=== PATIENT | male | born 1945 | race Caucasian/White ===

== ENCOUNTER 2017-07-10 08:02 | Emergency (ER) | payer MEDICARE, OTHER ==
[~2017-07-10] VITALS: Ht 172.7 cm; Wt 99.8 kg
[~2017-07-10 08:02] MED LIST: ACETAMINOPHEN325 M1 PO; ALPRAZOLAM ER1 MG PO; ALPRAZOLAM0.5 MG PO; ATIVAN1 MG PO; CIPRO500 MG PO; CIPROFLOXACIN500 MG PO; LEVAQUIN500 MG PO; NORCO 5-325 TA1 EACH PO; PRILOSEC20 MG PO; ZOFRAN ODT8 MG SL
[2017-07-10] MEDS ORDERED: LISINOPRIL20 MG PO (10:20)
--- NOTE | 2017-07-10 20:52 | EKG ---
[facility] [address] [facility] [place] [address] Signed Sinus bradycardia Otherwise normal ECG No previous ECGs available Confirmed by SHANKAR HOANG MD ([id number]) on 07/10/2017 8:52:09 PM Electronically Signed By: SHANKAR HOANG MD 07/10/172051 PATIENT NAME: RAÚLLARISAJaida VAUGHAN Electrocardiogram DATE OF : 43 PHYSICIAN: SHANKAR HOANG MD REPORT #: [id number] REPORT IS CONFIDENTIAL AND NOT TO BE RELEASED WITHOUT AUTHORIZATION
== END 2017-07-10 10:36 | disposition home or self-care (01) ==
LOC: ED 08:02
DX: I10 Essential (primary) hypertension (principal); R07.2 Precordial pain; E78.5 Hyperlipidemia, unspecified; Z87.891 Personal history of nicotine dependence; Z88.0 Allergy status to penicillin; Z88.2 Allergy status to sulfonamides; Z88.8 Allergy status to other drugs, medicaments and biological substances; Z88.5 Allergy status to narcotic agent
CPT/HCPCS: 36415; 71045; 80053; 84484; 85025; 93005; 93010; 99284

== ENCOUNTER 2017-11-20 06:45 | Day surgery (SDC) | payer MEDICARE, OTHER ==
[~2017-11-20] VITALS: Ht 172.7 cm; Wt 97.5 kg
--- NOTE | ~2017-11-20 | OR ---
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 PROCEDURE: Olecranon bursectomy and removal of loose body x1. ANESTHESIA: General. SPECIMENS AND COMPLICATIONS: There were no specimens or complications. TOURNIQUET TIME: Tourniquet time was about 30 minutes. WHAT WAS DONE: The patient was taken to the operating room. After anesthesia was induced and airway secured, the patient was placed in the right lateral decubitus position. The left upper extremity was positioned, prepped and draped in the routine sterile fashion. The arm was exsanguinated with an Esmarch bandage. Pneumatic tourniquet was inflated to 250 mmHg pressure. A vertical posterior incision was made directly over the olecranon bursa. Skin was divided sharply. Subcutaneous tissue was bluntly spread. The bursa was then shelled out as a single fragment and delivered off the field. There was an additional loose body lying just posterior to the triceps tendon and was slightly adherent to it. We therefore shell this out as well. Hemostasis was achieved with electrocautery. Routine wound closure was accomplished. A sterile dressing was applied and the patient was awakened and taken to the recovery room where he arrived in stable condition. Counts were correct and antibiotic protocols were followed. Timothy Craven MD PATIENT NAME: LARISA OLSEN OPERATIVE REPORT DATE OF : 43 REPORT #: [id number] PHYSICIAN: TIMOTHY CRAVEN MD PCP: KUMAR ACOSTA MD REPORT IS CONFIDENTIAL AND NOT TO BE RELEASED WITHOUT AUTHORIZATION [address] [place], [place] [address] Draft [facility] /[id number] Copies: ~ PATIENT NAME: LARISA OLSEN OPERATIVE REPORT DATE OF : 43 REPORT #: [id number] PHYSICIAN: TIMOTHY CRAVEN MD PCP: KUMAR ACOSTA MD REPORT IS CONFIDENTIAL AND NOT TO BE RELEASED WITHOUT AUTHORIZATION
[~2017-11-20 06:45] MED LIST changes: +ASPIR-LOW81 MG PO; +BIOTIN10000 MC1 PO; +CITRUS CALCIUM +1 EA PO; +FINASTERIDE5 MG PO; +LISINOPRIL20 MG PO; +OMEPRAZOLE20 MG PO; +VITAMIN B-6100 MG PO; +VITAMIN D32000 UNI1 PO
--- NOTE | 2017-11-20 10:01 | NUR ---
PT RESTING IN , WITH FAMILY PRESENT. HE IS POLITE, RESPECTFUL, BOT BOTH HE AND HIS SEEMED TO BE IN A SAENZ. EXTENDED A BLESSING WILL FOLLOW NEEDED
--- NOTE | 2017-11-20 10:15 | NUR ---
11/20/17 1015 Leticia Sams 1009 PATIENT ARRIVES TO PACU SLEEPING, AWAKENS WITH VERBAL STIMULI, DENIES PAIN, THEN BACK TO SLEEP. RESP EVEN AND UNLABORED, SNORES AT TIMES, MASK AT 6 LITERS.
[2017-11-20] MEDS ORDERED: ULTRAM50 MG PO (11:05)
--- NOTE | 2017-11-20 12:01 | NUR ---
1135 UP TO BR VOIDS QS. DENIES PAIN OR NEED FOR PAIN MEDICINE. WANTS TO GO HOME. ATE JELLO CRACKERS AND WATER. DENIES ANY NEEDS.
== END 2017-11-20 11:45 | disposition home or self-care (01) ==
LOC: DS 06:45 → OPS 06:45 → DS 08:15 → OPS 08:15
PROVIDERS: Orthopaedic Surgery
PROC: 0MB40ZZ Excision of Left Elbow Bursa and Ligament, Open Approach (ICD-10-PCS; principal; 2017-11-20 08:15)
DX: M70.22 Olecranon bursitis, left elbow (principal); I10 Essential (primary) hypertension; F32.9 Major depressive disorder, single episode, unspecified; G89.29 Other chronic pain; M54.9 Dorsalgia, unspecified; Z88.0 Allergy status to penicillin; Z88.5 Allergy status to narcotic agent; Z79.899 Other long term (current) drug therapy; Z79.82 Long term (current) use of aspirin
CPT/HCPCS: 01710; J0690; J2250; J2405; J2704; J2765; J3010; J7120

== ENCOUNTER 2019-02-12 10:17 | Day surgery (SDC) | payer MEDICARE, OTHER ==
[~2019-02-12] VITALS: Ht 172.7 cm; Wt 97.5 kg
[~2019-02-12 10:17] MED LIST changes: +ULTRAM50 MG PO
--- NOTE | 2019-02-12 12:57 | NUR ---
02/12/19 Paula Brannon 1252- PT ARRIVES TO PACU EASILY AROUSABLE TO VOICE. FALLS INSTANTLY TO SLEEP WHEN NOT BEING TALKED TO. RESP EVEN AND UNLABORED. OXYGEN SAT HIGH 90'S TO 100% ON 4L VIA MASK. 1254- OXYGEN TITRATED OFF.
--- NOTE | 2019-02-13 12:35 | OR ---
[facility] [address] [place], [place] [address] Signed DATE OF OPERATION: 02/12/2019 SURGEON: Shanice Fitzgerald MD PREOPERATIVE DIAGNOSES: 1. Family history of colon cancer (father). 2. Known diverticulosis. POSTOPERATIVE DIAGNOSIS: Diverticular disease. No sign of polyps. PROCEDURE PERFORMED: Total colonoscopy to cecum. ANESTHESIA: Intravenous sedation with fentanyl 100 mcg, Versed 4 mg. INDICATION: This 73-year-old white man is well known to me from the past having undergone excision of submandibular gland for submandibular abscess. He has also undergone colonoscopy in the past in 2014 showing diverticulosis. He is here for surveillance colonoscopy. He has family history of colon cancer in his father, who developed the disease in his 80s. He notes episodic abdominal pain in the left lower abdomen, which is largely related to his diet. He is admitted at this time to undergo colonoscopy. He understands the risks of bleeding, infection, and perforation. FINDINGS: He did have diverticulosis of the sigmoid and left colon. There was no sign of polyps or cancer. The remaining colon was normal. DESCRIPTION OF PROCEDURE: The patient was brought to the endoscopy suite and placed in lateral decubitus position given intravenous sedation to the point of slurred speech and nystagmus. Digital rectal examination was normal. An Olympus video colonoscope was passed in the rectum and manipulated throughout the colon noting diverticula of the sigmoid and left colon. The scope was ultimately advanced to the cecum. The ileocecal valve and appendiceal orifice were normal. The scope was withdrawn from that point. Examination throughout showed no sign of abnormality specifically no polyps or colitis but only diverticula as previously noted. Electronically Signed By: SHANICE FITZGERALD MD 02/13/19 1235 PATIENT NAME: LARISA OLSEN OPERATIVE REPORT DATE OF : 43 REPORT #: [id number] PHYSICIAN: SHANICE FITZGERALD MD PCP: KUMAR ACOSTA MD REPORT IS CONFIDENTIAL AND NOT TO BE RELEASED WITHOUT AUTHORIZATION [facility] [address] [place] [address] Signed Retroflexed view of the rectum was normal. Scope was removed. The patient was taken to recovery room in good condition. CONCLUSION DIAGNOSIS: Diverticular disease. No evidence of polyps or cancer. PLAN: Recommend repeat colonoscopy in 5 years based on family history of colon cancer in his father. MD PROSPER Mari/JOSHUA /[id number] cc: Abelino Dumont Copies: ~ Electronically Signed By: SHANICE FITZGERALD MD 02/13/19 1235 PATIENT NAME: JULIET OLSENJaida VAUGHAN OPERATIVE REPORT DATE OF : 43 REPORT #: [id number] PHYSICIAN: SHANICE FITZGERALD MD PCP: KUMAR ACOSTA MD REPORT IS CONFIDENTIAL AND NOT TO BE RELEASED WITHOUT AUTHORIZATION
== END 2019-02-12 13:35 | disposition home or self-care (01) ==
LOC: OPS 10:17 → DS 10:17 → OPS 10:45 → DS 10:45 → OPS 13:35
PROVIDERS: Surgery
PROC: 0DJD8ZZ Inspection of Lower Intestinal Tract, Via Natural or Artificial Opening Endoscopic (ICD-10-PCS; principal; 2019-02-12 10:45)
DX: R10.32 Left lower quadrant pain (principal); K57.30 Diverticulosis of large intestine without perforation or abscess without bleeding; Z88.0 Allergy status to penicillin; Z88.5 Allergy status to narcotic agent; Z88.2 Allergy status to sulfonamides; Z88.1 Allergy status to other antibiotic agents; Z80.0 Family history of malignant neoplasm of digestive organs
CPT/HCPCS: G0105; 99153; G0500; J2250; J3010; J7121

== ENCOUNTER 2019-12-31 13:31 | Emergency (ER) | payer MEDICARE, OTHER ==
[~2019-12-31] VITALS: Ht 172.7 cm; Wt 98.9 kg
--- OUTSIDE RECORDS SUMMARY | 2019-12-31 13:34 | XMS ---
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 Anisha has no Care Guidelines for this patient. Nica VISIT COUNT (12 MO.) 1 [facility] Lynn TOTAL 1 NOTE: Visits indicate total known visits. ED/C VISIT TRACKING (12 MO.) 12/31/2019 13:32 [facility] T[facility] [place] TYPE: Emergency COMPLAINT: - B/P PROBLEM, HEADACHE, VISION INPATIENT VISIT TRACKING (12 MO.) No inpatient visits to display in this time frame [id number]
[2019-12-31] MEDS ORDERED: CEPHALEXIN500 MG PO (13:49)
[2019-12-31] MEDS ORDERED: AMLODIPINE BES2.5 MG PO (13:49)
== END 2019-12-31 16:36 | disposition home or self-care (01) ==
LOC: ED 13:31
DX: R51.9 Headache, unspecified (principal); I10 Essential (primary) hypertension; E78.5 Hyperlipidemia, unspecified; Z87.891 Personal history of nicotine dependence; Z88.0 Allergy status to penicillin; Z88.2 Allergy status to sulfonamides; Z88.1 Allergy status to other antibiotic agents; Z88.5 Allergy status to narcotic agent; Z79.899 Other long term (current) drug therapy; Z79.82 Long term (current) use of aspirin
CPT/HCPCS: 70450; 80053; 85025; 85651; 99284-25

== ENCOUNTER 2020-01-13 12:04 | Emergency (ER) | payer MEDICARE, OTHER ==
[~2020-01-13] VITALS: Ht 172.7 cm; Wt 98.9 kg
[~2020-01-13 12:04] MED LIST changes: +AMLODIPINE BES2.5 MG PO; +CEPHALEXIN500 MG PO
--- OUTSIDE RECORDS SUMMARY | 2020-01-13 12:06 | XMS ---
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 Anisha has no Care Guidelines for this patient. Nica V[facility] COUNT (12 MO.) [facility] NOTE: Visits indicate total known visits. ED/[facility] VISIT TRACKING (12 MO.) [facility] COMPLAINT: - HIGH BLOOD PRESSURE 12/31/2019 13:[address] 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
[2020-01-13] MEDS ORDERED: HYDROCHLOROTH12.5 M1 PO (13:22)
== END 2020-01-13 13:32 | disposition home or self-care (01) ==
LOC: ED 12:04
DX: I10 Essential (primary) hypertension (principal); E78.5 Hyperlipidemia, unspecified; Z87.891 Personal history of nicotine dependence; Z88.0 Allergy status to penicillin; Z88.2 Allergy status to sulfonamides; Z88.5 Allergy status to narcotic agent; Z88.1 Allergy status to other antibiotic agents; Z79.899 Other long term (current) drug therapy; Z79.82 Long term (current) use of aspirin
CPT/HCPCS: 99283

== ENCOUNTER 2020-06-13 13:25 | Emergency (ER) | payer MEDICARE, OTHER ==
[~2020-06-13] VITALS: Ht 172.7 cm; Wt 98.9 kg
[~2020-06-13 13:25] MED LIST changes: +HYDROCHLOROTH12.5 M1 PO
== END 2020-06-13 16:18 | disposition home or self-care (01) ==
LOC: ED 13:25
DX: S61.216A Laceration without foreign body of right little finger without damage to nail, initial encounter (principal); W26.8XXA Contact with other sharp object(s), not elsewhere classified, initial encounter; E78.5 Hyperlipidemia, unspecified; I10 Essential (primary) hypertension; Z87.891 Personal history of nicotine dependence; Z88.0 Allergy status to penicillin; Z88.2 Allergy status to sulfonamides; Z88.1 Allergy status to other antibiotic agents; Z88.5 Allergy status to narcotic agent; Z79.899 Other long term (current) drug therapy; Z79.82 Long term (current) use of aspirin
CPT/HCPCS: 12001; 99282-25

== ENCOUNTER 2022-11-15 16:18 | Emergency (ER) | payer MEDICARE, OTHER ==
[~2022-11-15] VITALS: Ht 172.7 cm; Wt 77.5 kg
[2022-11-15] MEDS ORDERED: ATORVASTATIN CA40 MG PO (17:06)
[2022-11-15] MEDS ORDERED: LISINOPRIL5 MG PO (17:07)
[2022-11-15 19:07] VITALS: BP 139/71
== END 2022-11-15 19:05 | disposition home or self-care (01) ==
LOC: ED 16:18
DX: S81.811A Laceration without foreign body, right lower leg, initial encounter (principal); I10 Essential (primary) hypertension; W22.8XXA Striking against or struck by other objects, initial encounter; Z87.891 Personal history of nicotine dependence; Z88.0 Allergy status to penicillin; Z88.5 Allergy status to narcotic agent; Z88.8 Allergy status to other drugs, medicaments and biological substances; Z79.899 Other long term (current) drug therapy; Z79.82 Long term (current) use of aspirin
CPT/HCPCS: 99282

== ENCOUNTER 2023-03-14 13:19 | Emergency (ER) | payer MEDICARE, OTHER ==
[~2023-03-14] VITALS: Ht 172.7 cm; Wt 77.7 kg
[~2023-03-14 13:19] MED LIST changes: +ATORVASTATIN CA40 MG PO; +DIFLUCAN200 MG PO; +LISINOPRIL5 MG PO
[2023-03-14 14:42] LABS: BASOPHILS 0.7 % (0-2); EOSINOPHILS 2.8 % (0-6); HEMATOCRIT 45.4 % (35.0-50.0); HEMOGLOBIN 14.8 g/dL (12.0-18.0); LYMPHOCYTES 26.9 % (24-44); MCH 30.9 (27-36); MCHC 32.7 g/dl (30-36); MCV 94.4 fl (81-99); MONOCYTES 8.5 % (0-12); NEUTROPHILS 61.1 % (39-80); PLATELET COUNT 270 K/uL (140-440); RBC 4.81 M/ul (4.3-5.7); RDW 13.8 (10.5-15.0)
[2023-03-14 14:45] LABS: BILIRUBIN, URINE NEGATIVE (negative); BLOOD/HGB, URINE NEGATIVE (Negative); KETONE, URINE NEGATIVE (Negative); LEUK ESTERASE, URINE NEGATIVE (negative); NITRITE, URINE NEGATIVE (negative); PH, URINE 7.5 (5-7)
[2023-03-14 15:15] LABS: ALBUMIN 3.1 g/dL (3.4-5.0); BILIRUBIN, TOTAL 0.2 ng/dL (0.2-1.0); CALCIUM 8.4 mg/dL (8.5-10.1); PROTEIN, TOTAL 6.2 g/dL (6.4-8.2)
--- NOTE | 2023-03-14 17:40 | EKG ---
[facility] [address] [facility] [place] [address] Signed Sinus rhythm with 1st degree AV block Left axis deviation Abnormal ECG When compared with ECG of 17-NOV-2017 11:20, MA interval has increased Confirmed by BRUNO CRAVEN MD ([id number]) on 03/14/2023 5:40:00 PM Electronically Signed By: BRUNO CRAVEN 03/14/23 1740 PATIENT NAME: LARISA OLSEN Electrocardiogram DATE OF : 43 PHYSICIAN: BRUNO CRAVEN REPORT #: [id number] REPORT IS CONFIDENTIAL AND NOT TO BE RELEASED WITHOUT AUTHORIZATION
[2023-03-14] MEDS ORDERED: LEVOFLOXACIN750 MG PO (19:06)
[2023-03-14 19:19] VITALS: BP 142/78
== END 2023-03-14 19:21 | disposition home or self-care (01) ==
LOC: ED 13:19
PROVIDERS: Emergency Medicine
DX: K57.92 Diverticulitis of intestine, part unspecified, without perforation or abscess without bleeding (principal); K57.30 Diverticulosis of large intestine without perforation or abscess without bleeding; I10 Essential (primary) hypertension; Z88.0 Allergy status to penicillin; Z88.5 Allergy status to narcotic agent; Z88.8 Allergy status to other drugs, medicaments and biological substances; E78.5 Hyperlipidemia, unspecified; Z79.899 Other long term (current) drug therapy
CPT/HCPCS: 36415; 74177; 80053; 81003; 83690; 84484; 85025; 93005; 93010; 99284-25; J7030; Q9967

== ENCOUNTER 2023-05-08 07:50 | Day surgery (SDC) | payer MEDICARE, OTHER ==
[2023-05-01 08:18] VITALS: BP 111/75
[~2023-05-08] VITALS: Ht 172.7 cm; Wt 76.4 kg
--- NOTE | ~2023-05-08 | OR ---
[facility] [address] [place], [place] [address] Draft DATE OF OPERATION: 05/08/2023 SURGEON: Shanice Fitzgerald MD PREOPERATIVE DIAGNOSIS: Symptomatic umbilical hernia. POSTOPERATIVE DIAGNOSIS: Symptomatic umbilical hernia, 4.1 cm fascial defect. PROCEDURES: 1. Repair of 4.1 cm umbilical hernia. 2. Implantation of Prolene mesh underlay technique. ANESTHESIA: General LMA, Zane Morris, PRE SCHOOL MANAGER and local 10 mL of 0.25% Marcaine with epinephrine. INDICATION: This 77-year-old white man is a patient of Tevin Dalton MD. He is known to me from the past having undergone neck exploration for purulent submandibular adenitis requiring resection. The patient is referred for colonoscopy and additionally noted to have an umbilical hernia at the umbilical site. Initial clinical evaluation shows it to possibly be less than 3 cm. The hernia is uncomfortable for him, though it is reducible. He has some diastasis cephalad to the umbilicus itself. He is admitted at this time to undergo umbilical hernia repair. He understands the risk of bleeding, infection, recurrence and so on. FINDINGS: The defect was somewhat larger than clinically suspected measured at 4.1 cm. The attenuated fascia was broadly covered with implantation of mesh in the properitoneal space. Closure of the fascia over the mesh was accomplished as well without problem. DESCRIPTION OF PROCEDURE: The patient was brought to the operating room, given a general LMA type anesthetic. Preoperative antibiotic Ancef was given. Sequential compression device stockings were used and heparin subcutaneously administered. The abdomen was clipped and prepared with a chlorhexidine solution and draped sterilely. Palpation at the umbilicus revealed the mass, which was not particularly entirely reducible, though certainly without signs of erythema or signs of strangulation. A curvilinear incision was made lateral to the umbilicus, in the umbilical skin fold dissection was carried through the subcutaneous PATIENT NAME: LARISA OLSEN OPERATIVE REPORT DATE OF : 43 REPORT #: [id number] PHYSICIAN: SHANICE FITZGERALD MD PCP: TEVIN DALTON MD REPORT IS CONFIDENTIAL AND NOT TO BE RELEASED WITHOUT AUTHORIZATION [facility] [address] [place], [place] [address] Draft tissue. The underlying hernia sac was freed from the overlying dermis of the umbilicus allowing for good definition of the fascial edges circumferentially. It was measured approximately 4.1 cm. The hernia that was protruding was properitoneal fat. A plane was developed between the properitoneal fat and the overlying fascia. Once circumferentially freed, a segment of Prolene mesh was cut to a circular configuration and secured in an underlay technique with interrupted 0 Prolene sutures. The fascia was then reapproximated with interrupted 0 Prolene suture in a vertical mattress configuration. 10 mL of 0.25% Marcaine with epinephrine was injected locally. The Keyanna's layer was reapproximated with interrupted 2-0 Vicryl and skin closed with running subcuticular 3-0 Vicryl. Steri-Strips were applied as was an Acticoat dressing. Blood loss was estimated at 5 mL. Sponge, needle and instrument counts were reported as correct x3. MD PROSPER Mari/MODL /[id number] cc: Tevin Dalton MD Copies: TEVIN DALTON MD ~ PATIENT NAME: LARISA OLSEN CLEMENT OPERATIVE REPORT DATE OF : 43 REPORT #: [id number] PHYSICIAN: SHANICE FITZGERALD MD PCP: TEVIN DALTON MD REPORT IS CONFIDENTIAL AND NOT TO BE RELEASED WITHOUT AUTHORIZATION
[~2023-05-08 07:50] MED LIST changes: +ACID REDUCER20 MG PO; +CALCIUM CITRAT480 GM PO; +CEFAZOLIN SODIUM 2 GM/20 ML SYR IV SCH; +HEParin SOD (PORCINE) 5,000 UNIT/0.5 ML SYR SUB-Q SCH; +IBLOOD GLUCOSE TEST STRIP 1 EA TEST VI PRN; +LACTATED RINGER'S 1,000 ML IV SCH; +LEVOFLOXACIN750 MG PO; +LIDOCAINE HCL 1% 5 ML SDV INJ ONE; +OSTERA TABLET1 EACH PO; +TYLENOL EXTRA500 MG PO; +[UNRECOGNIZED DRUG - OTHER] PO
[2023-05-08 08:32] VITALS: BP 123/69
[2023-05-08] MEDS ORDERED: fentaNYL citrate 100 MCG/2 ML VIAL ONE (08:42)
[2023-05-08] MEDS ORDERED: DEXAMETHASONE SOD PHOS 4 MG/ML VIAL ONE (08:55)
[2023-05-08] MEDS ORDERED: LIDOCAINE HCL 2% 5 ML SDV ONE ×2 (08:55→09:01)
[2023-05-08] MEDS ORDERED: ondansetron HCL 4 MG/2 ML VIAL ONE (08:55)
[2023-05-08] MEDS ORDERED: ACETAMINOPHEN 1,000 MG/100 ML VIAL ONE (08:55)
[2023-05-08] MEDS ORDERED: propofoL 200 MG/20 ML VIAL ONE (08:55)
[2023-05-08] MEDS ORDERED: MAGNESIUM SULFATE 1 GM/2 ML VIAL ONE (09:03)
--- NOTE | 2023-05-08 11:02 | NUR ---
05/08/23 1102 Dyana Grant 1053-PATIENT ARRIVED TO PACU ON RA 02 SAT MID 90S'S PLACED ON 6L MASK INCREASED TO 100% RN DOING JAW TILT TO MAINTAIN OPEN AIRWAY. SR. IVF INFUSING. UMBILICAL DRESSING CDI. 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 HOB ELEVATED. 1057-PATIENT HAVING PERIODS OF APNEA WITH SNORING AROUSES TO VERBAL STIMULI REMAINS VERY DROWSY DOZES BACK TO SLEEP.
[2023-05-08] MEDS ORDERED: IBUPROFEN600 MG PO (11:05)
[2023-05-08] MEDS ORDERED: ACETAMINOPHEN500 MG PO (11:06)
[2023-05-08] MEDS ORDERED: OXYCODON-ACETA1 EAC2 PO (11:06)
[2023-05-08] MEDS ORDERED: ACETAMINOPHEN 500 MG TAB PO PRN (11:15)
[2023-05-08] MEDS ORDERED: LACTATED RINGER'S 1,000 ML IV SCH (11:15)
[2023-05-08] MEDS ORDERED: IBUPROFEN 600 MG TAB PO PRN (11:15)
[2023-05-08] MEDS ORDERED: OXYCODONE/APAP 7.5/325 TAB PO PRN (11:15)
[2023-05-08 11:55] VITALS: BP 117/63
--- NOTE | 2023-05-08 11:58 | NUR ---
PATIENT BACK IN DAY SURGERY ROOM FROM PACU. RATES PAIN 4/10 AT SURGICAL SITE. UMBILICUS DRESSING WITH SMALL AMOUNT OF RED DRAINAGE NEAR BOTTOM OF DRESSING. VS CHECKED. IV SITE WNL. SCDs ON. CALL LIGHT WITHIN REACH. TOLERATING SIPS OF WATER. DECLINED SOMETHING TO EAT AT THIS TIME. FAMILY IN ROOM WITH PATIENT.
[2023-05-08 12:52] VITALS: BP 120/64
--- NOTE | 2023-05-08 14:32 | NUR ---
1230: PATIENT STATES DOING WELL. GIVEN PUDDING TO EAT. 1245: VS CHECKED. UMBILICUS DRESSING WITH SMALL AMOUNT OF DRAINAGE AT BOTTOM OF DRESSING. IV SITE WNL. CALL LIGHT WITHIN REACH.
--- NOTE | 2023-05-08 14:36 | NUR ---
1300: PATIENT MEDICATED FOR PAIN WITH 1 TABLET OF PERCOCET. PATIENT ASSISTED OOB AND TO BATHROOM. GAIT STEADY. VOID WITHOUT DIFFICULTY. GAIT STEADY BACK TO ROOM. PATIENT GETTING DRESSED. 1315: DISCHARGE INSTRUCTIONS GIVEN TO PATIENT AND GRANDSON. IV DC'D WNL. TIP INTACT. DRESSING APPLIED. 1318: PATIENT DISCHARGED TO HOME WITH GRANDSON VIA WHEELCHAIR.
--- NOTE | 2023-05-08 21:50 | EKG ---
[facility] [address] [facility] [place] [address] Signed Sinus rhythm with 1st degree AV block Left axis deviation Abnormal ECG When compared with ECG of 14-MAR-2023 14:15, No significant change was found Confirmed by Pasha Caraballo MD () on 05/08/2023 9:50:40 PM Electronically Signed By: PASHA CARABALLO MD 05/08/232149 PATIENT NAME: LARISA OLSEN Electrocardiogram DATE OF : 43 PHYSICIAN: PASHA CARABALLO MD REPORT #: [id number] REPORT IS CONFIDENTIAL AND NOT TO BE RELEASED WITHOUT AUTHORIZATION
== END 2023-05-08 13:18 | disposition home or self-care (01) ==
LOC: DS 07:50
PROVIDERS: ATTEND Surgery
PROC: 0WUF0JZ Supplement Abdominal Wall with Synthetic Substitute, Open Approach (ICD-10-PCS; principal; 2023-05-08 09:30)
DX: K42.9 Umbilical hernia without obstruction or gangrene (principal); I10 Essential (primary) hypertension; K21.9 Gastro-esophageal reflux disease without esophagitis; E78.00 Pure hypercholesterolemia, unspecified; Z80.0 Family history of malignant neoplasm of digestive organs
CPT/HCPCS: 93005; 93010; C1781; J0131; J0690; J1100; J1644; J2001; J2405; J2704; J3010; J3475; J7121

== ENCOUNTER 2023-09-09 11:58 | Day surgery (SDC) | payer MEDICARE, OTHER ==
[~2023-09-09] VITALS: Ht 172.7 cm; Wt 76.4 kg
[~2023-09-09 11:58] MED LIST changes: +ACETAMINOPHEN500 MG PO; +CALCIUM 500 MG1 EAC5 PO; -CALCIUM CITRAT480 GM PO; -CEFAZOLIN SODIUM 2 GM/20 ML SYR IV SCH; +CLINDAMYCIN HC300 MG PO; +DICYCLOMINE HCL20 MG PO; -HEParin SOD (PORCINE) 5,000 UNIT/0.5 ML SYR SUB-Q SCH; +IBUPROFEN600 MG PO; +IMODIUM A-D2 M2 PO; +MIDAZOLAM HCL 5 MG/5 ML VIAL IV PRN; -OSTERA TABLET1 EACH PO; +OXYCODON-ACETA1 EAC2 PO; +TM-VITE RX T1000 MCG PO; +VITAMIN D325 MCG PO; -[UNRECOGNIZED DRUG - OTHER] PO; +fentaNYL citrate 100 MCG/2 ML VIAL IV PRN
[2023-09-09 12:23] VITALS: BP 122/69
--- NOTE | 2023-09-09 14:01 | NUR ---
LE 1300-PT UPDATED ON WAIT TIME. NO OTHER NEEDS AT THIS TIME. CALL LIGHT WITHIN REACH. BAR IN ROOM.
--- NOTE | 2023-09-09 14:13 | NUR ---
PT UPDATED ON SURGERY WAIT TIME. PT STATES "THATS OK". PT AMBULATES TO RESTOOM. NO OTHER NEEDS AT THIS TIME. 1416-PT AMBULATES BACK TO ROOM. PT LAYING IN BED. NO OTHER NEEDS AT THIS TIME. CALL LIGHT WITHIN REACH.
--- NOTE | 2023-09-09 15:50 | NUR ---
PT UP TO RESTROOM. PT UPDATED ON WAIT TIME. STATES "I WOULD RATHER STAY AND GET IT OVER WITH". 1535-PT BACK IN ROOM AND IS LAYING IN BED. NO OTHER NEEDS AT THIS TIME. CALL LIGHT WITHIN REACH.
[2023-09-09] MEDS ORDERED: MIDAZOLAM HCL 5 MG/5 ML VIAL ONE (17:20)
[2023-09-09] MEDS ORDERED: fentaNYL citrate 100 MCG/2 ML VIAL ONE (17:21)
--- NOTE | 2023-09-09 18:15 | NUR ---
09/09/231814 Jovana Marley 180- PT ARRIVES TO UNIT ALERT & ORIENTED AND RESPONSIVE TO VERBAL STIMULI AT THIS TIME. PT ON 2L OF O2 VIA NC AT THIS TIME. RESPIRATIONS ARE EVEN AND UNLABORED AT THIS TIME. PT STATES HE IS COMFORTABLE AT THIS TIME. 1812- AMILCAR SUE AT BEDSIDE TO DISCUSS PROCEDURE W/PT. PT ASKING QUESTIONS APPROPRIATELY, ALL QUESTIONS ANSWERED AT THIS TIME. PT STATES HE IS COMFORTABLE AND REMAINS PAIN FREE. PT ENCOURAGED TO PASS ANY GAS IF SENSATION ARISES, PT STATES VERBAL UNDERSTANDING. PT AWAKE OFF AND ON, RESPIRATIONS EVEN AND UNLABORED. O2 >90% VIA 2L OF NC.
[2023-09-09 18:31] VITALS: BP 122/86
--- NOTE | 2023-09-12 15:28 | OR ---
[facility] [address] [place], [place] [address] Signed DATE OF OPERATION: 09/09/2023 SURGEON: Shanice Fitzgerald MD PREOPERATIVE DIAGNOSIS: Family history of colon cancer (father; normal colonoscopy in 2019). POSTOPERATIVE DIAGNOSES: 1. Sigmoid and left-sided diverticulosis. 2. Diminutive polyps x2, rectosigmoid. PROCEDURES: Total colonoscopy to cecum with cold morcellation polypectomy x2. ANESTHESIA: Intravenous sedation, fentanyl 100 mcg and Versed 3 mg. INDICATIONS: This 78-year-old white man is patient of Dr. Tevin Dalton. He had diarrhea problems approximately 6 weeks ago, which resolved with a fiber supplement. He does have family history of colon cancer in his father. He last underwent colonoscopy in January 2019, which was normal. He is admitted to undergo surveillance colonoscopy, understand the risk of bleeding, infection, and perforation. FINDINGS: The prep was excellent. Complete colonoscopy was undertaken. The cecum with full intubation of the cecum. The appendiceal orifice and ileocecal valve were normal. He has scattered diverticula throughout the colon. There were two small polyps of the rectosigmoid, which were excised with cold morcellation technique. There were no other findings of concern. DESCRIPTION OF PROCEDURE: The patient was brought to the endoscopy suite and placed in lateral decubitus position, given intravenous sedation to the point of slurred speech and nystagmus. Digital rectal examination was normal. An Olympus video colonoscope was passed into the rectum and manipulated throughout the colon, ultimately intubating the cecum itself. The ileocecal valve and appendiceal orifice were normal. Scope was withdrawn from that point and examination undertaken showed scattered diverticula throughout the colon, but most dominantly sigmoid and left Electronically Signed By: SHANICE FITZGERALD MD 09/12/23 1528 PATIENT NAME: LARISA OLSEN OPERATIVE REPORT DATE OF : 43 REPORT #: [id number] PHYSICIAN: SHANICE FITZGERALD MD PCP: TEVIN DALTON MD REPORT IS CONFIDENTIAL AND NOT TO BE RELEASED WITHOUT AUTHORIZATION [facility] [address] [place], [place] [address] Signed colon. At the rectosigmoid, there were two diminutive polyps, both were excised with cold morcellation technique. Retroflexed view was found to be normal. Scope was removed. The patient was taken to the recovery room in good condition. CONCLUDING DIAGNOSES: 1. Diverticulosis. 2. Diminutive polyps x2. PLAN: Recommend repeat colonoscopy in 5 years based on family history or sooner if symptoms should develop. We will recommend a high-fiber diet or Metamucil fiber supplement. He will return to the ongoing care of Dr. Tevin Dalton. MD PROSPER Mari/MODL /[id number] Copies: ~ Electronically Signed By: SHANICE FITZGERALD MD 09/12/23 1528 PATIENT NAME: LARISA OLSEN OPERATIVE REPORT DATE OF : 43 REPORT #: [id number] PHYSICIAN: SHAINCE FITZGERALD MD PCP: TEVIN DALTON MD REPORT IS CONFIDENTIAL AND NOT TO BE RELEASED WITHOUT AUTHORIZATION
--- NOTE | 2023-09-12 16:02 | PATH ---
[facility] [address] [facility] [place], [place] [address] Signed SPECIMEN(S): A RECTOSIGMOID POLYPS SPECIMEN SOURCE: A. RECTOSIGMOID POLYPS CLINICAL HISTORY: Family history of colon cancer, diverticulosis FINAL PATHOLOGIC DIAGNOSIS: Rectosigmoid colon polyps: - Suggestive of hyperplastic polyp. - No colitis or malignancy identified. LINDA MICROSCOPIC EXAMINATION: Histologic sections of all submitted blocks are examined by light microscopy. These findings, together with the gross examination, support the pathologic diagnosis. GROSS DESCRIPTION: The specimen, labeled and designated "Salazar, rectosigmoid polyps," is received in formalin and consists of two raymundo soft tissue fragments, ranging from 0.2-0.4 cm. Entirely submitted in (A1). VB (under the direct supervision of a pathologist) The Gross Description was prepared using a voice recognition system. The report was reviewed for accuracy; however, sound-alike word errors, addition and/or deletions may occur. If there is any question about this report, please contact Client Services. ADDITIONAL NOTES: Immunohistochemical and/or in situ hybridization studies if performed in this case included appropriate positive controls that reacted as expected. This test was developed and its performance characteristics determined by [facility]. It has not been cleared or approved by the U.S. Food and Drug Administration. The FDA has determined that such clearance or approval is not necessary. This test is used for clinical purposes. It should not be regarded as investigational or for research. [facility] is certified under the Clinical Laboratory Improvement Amendments of 1988 (CLIA) as qualified to perform high complexity clinical laboratory testing. PATIENT NAME: LARISA SALAZAR PATHOLOGY DATE OF : 43 REPORT #: [id number] PHYSICIAN: JARED AVELAR PCP: TEVIN POOLE MD REPORT IS CONFIDENTIAL AND NOT TO BE RELEASED WITHOUT AUTHORIZATION [address] [address] Signed PERFORMING LABORATORY: Technical component was performed by [facility], [address] [place] [id number] (CLIA# [id number]). Professional interpretation was performed by [facility], [address] [place] [id number] (CLIA#: [id number]). Diagnostician: Ambrosio Whiteside MD Pathologist Electronically Signed 09/12/2023 Copies: ~ PATIENT NAME: LARISA SALAZAR PATHOLOGY DATE OF : 43 REPORT #: [id number] PHYSICIAN: JARED AVELAR PCP: TEVIN POOLE MD REPORT IS CONFIDENTIAL AND NOT TO BE RELEASED WITHOUT AUTHORIZATION
== END 2023-09-09 18:40 | disposition home or self-care (01) ==
LOC: DS 11:58
PROVIDERS: ATTEND Surgery
PROC: 0DBN8ZX Excision of Sigmoid Colon, Via Natural or Artificial Opening Endoscopic, Diagnostic (ICD-10-PCS; principal; 2023-09-09 13:00)
DX: Z12.11 Encounter for screening for malignant neoplasm of colon (principal); K63.5 Polyp of colon; K57.30 Diverticulosis of large intestine without perforation or abscess without bleeding; K21.9 Gastro-esophageal reflux disease without esophagitis; Z80.0 Family history of malignant neoplasm of digestive organs; Z88.0 Allergy status to penicillin; Z88.2 Allergy status to sulfonamides; Z88.5 Allergy status to narcotic agent; Z79.899 Other long term (current) drug therapy
CPT/HCPCS: 99153; G0500; J2250; J3010; J7121

== ENCOUNTER 2024-02-22 09:11 | Emergency (ER) | payer MEDICARE, OTHER ==
[~2024-02-22] VITALS: Ht 172.7 cm; Wt 83.4 kg
[~2024-02-22 09:11] MED LIST changes: -IBLOOD GLUCOSE TEST STRIP 1 EA TEST VI PRN; -LACTATED RINGER'S 1,000 ML IV SCH; -LIDOCAINE HCL 1% 5 ML SDV INJ ONE; -MIDAZOLAM HCL 5 MG/5 ML VIAL IV PRN; -fentaNYL citrate 100 MCG/2 ML VIAL IV PRN
[2024-02-22] MEDS ORDERED: FLUCONAZOLE150 MG PO (09:21)
[2024-02-22 09:58] LABS: HEMATOCRIT 42.1 % (35.0-50.0); HEMOGLOBIN 14.1 g/dL (12.0-18.0); MCH 31.1 (27-36); MCHC 33.4 g/dl (30-36); MCV 93.1 fl (81-99); PLATELET COUNT 367 K/uL (140-440); RBC 4.52 M/ul (4.3-5.7); RDW 14.5 (10.5-15.0)
[2024-02-22] MEDS ORDERED: ONDANSETRON 4 MG TAB ODT SL ONE (10:00)
[2024-02-22] MEDS ORDERED: OXYCODONE HCL 5 MG TAB PO ONE (10:00)
[2024-02-22 10:08] LABS: ALBUMIN 2.5 g/dL (3.4-5.0); ALBUMIN/GLOBULIN RATIO 0.61 (1.1-2.4); ANION GAP 11.1 (7-21); BILIRUBIN, TOTAL 0.6 ng/dL (0.2-1.0); BUN/CREATININE RATIO 21.05 (6.0-28.6); CALCIUM 9.1 mg/dL (8.5-10.1); CREATININE, SERUM 0.76 mg/dL (0.70-1.30); POTASSIUM 4.1 mmol/L (3.5-5.1); PROTEIN, TOTAL 6.6 g/dL (6.4-8.2)
[2024-02-22 10:11] LABS: LYMPHOCYTES, MANUAL DIFF 18; MONOCYTES, MANUAL DIFF 11; NEUTROPHILS, MANUAL DIFF 71
[2024-02-22] MEDS ORDERED: PREDNISONE10 MG PO (10:45)
[2024-02-22] MEDS ORDERED: predniSONE 20 MG TAB PO ONE (11:00)
[2024-02-22 11:02] VITALS: BP 150/77
== END 2024-02-22 11:03 | disposition home or self-care (01) ==
LOC: ED 09:11
PROVIDERS: Emergency Medicine
DX: M25.512 Pain in left shoulder (principal); M25.511 Pain in right shoulder; M25.552 Pain in left hip; M25.551 Pain in right hip; M25.562 Pain in left knee; M25.561 Pain in right knee; E78.5 Hyperlipidemia, unspecified; I10 Essential (primary) hypertension; Z87.891 Personal history of nicotine dependence; Z88.0 Allergy status to penicillin; Z88.2 Allergy status to sulfonamides; Z88.5 Allergy status to narcotic agent; Z79.899 Other long term (current) drug therapy
CPT/HCPCS: 36415; 80053; 82553; 85025; 85651; 86140; 99283; A9270; J7512

== ENCOUNTER 2024-07-06 08:39 | Emergency (ER) | payer MEDICARE, OTHER ==
[~2024-07-06] VITALS: Ht 172.7 cm; Wt 89.0 kg
[~2024-07-06 08:39] MED LIST changes: +FLUCONAZOLE150 MG PO; +PREDNISONE10 MG PO
[2024-07-06 09:48] VITALS: BP 137/84
== END 2024-07-06 10:00 | disposition home or self-care (01) ==
LOC: ED 08:39
DX: M25.562 Pain in left knee (principal); E78.5 Hyperlipidemia, unspecified; I10 Essential (primary) hypertension; Z79.899 Other long term (current) drug therapy; Z79.52 Long term (current) use of systemic steroids; Z88.5 Allergy status to narcotic agent; Z88.0 Allergy status to penicillin; Z88.2 Allergy status to sulfonamides; Z87.891 Personal history of nicotine dependence
CPT/HCPCS: 73560; 99283